=== PATIENT | female | born 1985 ===

== ENCOUNTER 2017-10-20 12:23 | Inpatient (IN) | payer OTHER ==
[~2017-10-20] VITALS: Ht 165.1 cm; Wt 2.7 kg
[~2017-10-20 12:23] MED LIST: KETO10TA2 PO; Mylicon 125MG PO; PRENATE ADVANCE PO
[2017-10-24] MEDS ORDERED: PRENATAL TABLE1 EACH PO (12:14)
== END 2017-10-27 14:54 | DRG 766 ==
LOC: SURG-SUITE 10-24 10:26 → LDR 10-24 10:26 → O/R 10-24 14:13 → SURG-SUITE 10-24 15:38 → O/R 11-02 09:00
PROVIDERS: Obstetrics & Gynecology
PROC: 4A1HXCZ Monitoring of Products of Conception, Cardiac Rate, External Approach (ICD-10-PCS; 2017-10-24)
PROC: 10D00Z1 Extraction of Products of Conception, Low, Open Approach (ICD-10-PCS; principal; 2017-10-24 13:00)
DX: O34.211 Maternal care for low transverse scar from previous cesarean delivery (principal); Z3A.39 39 weeks gestation of pregnancy; Z37.0 Single live birth